=== PATIENT | female | born 1965 | race Caucasian/White ===

== ENCOUNTER 2023-12-09 10:11 | Day surgery (SDC) | payer BC ==
[2023-12-09] MEDS ORDERED: Acetaminophen/Codeine 300-30 MG Tab PO PRN (10:15)
[2023-12-09] MEDS ORDERED: Ondansetron 4 MG/2 ML SDV IVPUSH PRN (10:15)
[2023-12-09] MEDS ORDERED: Acetaminophen 325 MG Tab PO PRN (10:15)
[2023-12-09] MEDS: Sodium Chloride 0.9% 10 ML Syringe FLUSH PRN (10:36)
[2023-12-09] MEDS: Proparacaine 0.5% Ophth Soln 15 ML Bottle EYERT ONE ×3 (10:50→11:08)
[2023-12-09] MEDS: Moxifloxacin 0.5% Ophth Soln 3 ML Bottle EYERT ONE (10:51)
[2023-12-09] MEDS: Povidone-Iodine 5% Sterile Ophth Soln 30 ML Bottle EYERT ONE ×3 (10:52→11:09)
[2023-12-09] MEDS: Tropicamide 1% Ophth Soln 15 ML Bottle EYERT ONE (10:53)
[2023-12-09] MEDS: Phenylephrine 10% Ophth Soln 5 ML Bot EYERT ONE (10:54)
[2023-12-09] MEDS: Lidocaine 1% 30 ML SDV ONE ×2 (10:54→11:23)
[2023-12-09] MEDS: Cataract Ophth Solution EYERT ONE (10:55)
[2023-12-09] MEDS: Vancomycin 500 MG SDV EYERT ONE ×2 (10:55→11:23)
[2023-12-09] MEDS: Timolol Maleate 0.5% Ophth Soln 5 ML Bottle EYERT ONE (10:55)
[2023-12-09] MEDS: Apraclonidine 0.5% Ophth Soln 5 ML Bot EYERT ONE ×2 (10:56→11:26)
[2023-12-09] MEDS: Diclofenac Sodium 0.1% Ophth Soln 5 ML Bottle EYERT ONE ×2 (10:56→11:26)
[2023-12-09] MEDS: Dexamethasone/Neomycin/Polymyxin B Ophth Oint 3.5 GM Tube EYERT ONE ×2 (10:57→11:26)
== END 2023-12-09 12:00 | disposition home or self-care (01) ==
LOC: DL.SDS 10:11
PROVIDERS: ATTEND Ophthalmology
DX: H25.811 Combined forms of age-related cataract, right eye (principal); Z79.899 Other long term (current) drug therapy
CPT/HCPCS: 00142; A9270-GY; J3370; J3490

== ENCOUNTER 2023-12-23 09:56 | Day surgery (SDC) | payer BC ==
[2023-12-23] MEDS: Lidocaine 1% 30 ML SDV ONE ×2 (07:29→10:55)
[2023-12-23] MEDS: Povidone-Iodine 5% Sterile Ophth Soln 30 ML Bottle EYELF ONE ×3 (07:29→10:44)
[2023-12-23] MEDS: Proparacaine 0.5% Ophth Soln 15 ML Bottle EYELF ONE ×3 (07:29→10:42)
[2023-12-23] MEDS: Vancomycin 500 MG SDV EYELF ONE ×2 (07:30→10:55)
[2023-12-23] MEDS: Apraclonidine 0.5% Ophth Soln 5 ML Bot EYELF ONE ×2 (07:30→11:00)
[2023-12-23] MEDS: Diclofenac Sodium 0.1% Ophth Soln 5 ML Bottle EYELF ONE ×2 (07:31→11:00)
[2023-12-23] MEDS: Dexamethasone/Neomycin/Polymyxin B Ophth Oint 3.5 GM Tube EYELF ONE ×2 (07:32→11:01)
[2023-12-23] MEDS ORDERED: Ondansetron 4 MG/2 ML SDV IVPUSH PRN (10:15)
[2023-12-23] MEDS ORDERED: Acetaminophen 325 MG Tab PO PRN (10:15)
[2023-12-23] MEDS ORDERED: Acetaminophen/Codeine 300-30 MG Tab PO PRN (10:15)
[2023-12-23] MEDS: Sodium Chloride 0.9% 10 ML Syringe FLUSH PRN (10:17)
[2023-12-23] MEDS: Moxifloxacin 0.5% Ophth Soln 3 ML Bottle EYELF ONE (10:20)
[2023-12-23] MEDS: Tropicamide 1% Ophth Soln 15 ML Bottle EYELF ONE (10:20)
[2023-12-23] MEDS: Phenylephrine 10% Ophth Soln 5 ML Bot EYELF ONE (10:23)
[2023-12-23] MEDS: Timolol Maleate 0.5% Ophth Soln 5 ML Bottle EYELF ONE (10:24)
[2023-12-23] MEDS: Cataract Ophth Solution EYELF ONE (10:24)
== END 2023-12-23 11:30 | disposition home or self-care (01) ==
LOC: DL.SDS 09:56
PROVIDERS: ATTEND Ophthalmology
DX: H25.812 Combined forms of age-related cataract, left eye (principal)
CPT/HCPCS: A9270-GY; J3370; J3490